=== PATIENT | female | born 1995 | race American Indian/Alaskan Native ===

== ENCOUNTER 2021-11-28 14:50 | Emergency (ER) | payer MEDICAID ==
[2021-11-28 15:17] VITALS: BP 117/70
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
== END 2021-11-28 15:57 | disposition home or self-care (01) ==
LOC: ED 14:50
DX: S86.912A Strain of unspecified muscle(s) and tendon(s) at lower leg level, left leg, initial encounter (principal); V89.2XXA Person injured in unspecified motor-vehicle accident, traffic, initial encounter; Y93.89 Activity, other specified; Y92.89 Other specified places as the place of occurrence of the external cause; Y99.8 Other external cause status
CPT/HCPCS: 99282